=== PATIENT | female | born 1990 | race African-American/Black ===

== ENCOUNTER 2018-05-11 08:02 | Emergency (ER) | payer MEDICAID, SELFPAY ==
[2018-05-11 08:37] LABS: Bilirubin Negative (Negative); Blood, Urine Negative (Negative); Clarity CLOUDY (Clear); Glucose, Urine (Dipstick) Negative (Negative); Leukocyte Negative (Negative); Nitrite Negative (Negative); Protein, Urine (Dipstick) Negative (Neg-Trace); Specific Gravity, Urine 1.014 (1.002-1.036)
[2018-05-11 08:45] LABS: Pregnancy Test - Urine (BHCG) Negative (Negative); Pregu Control Background? CLEAR/WHITE (CLR/WHITE); Pregu Control Bar Appear? YES (CONTROL BAR); Specific Gravity 1.014 (1.002-1.036)
[2018-05-11 08:50] LABS: #Eosinphils 0.1 thou/uL (0.0-0.7); #Lymphocytes 2.6 thou/uL (1.20-3.40); #Monocytes 0.4 thou/uL (0.11-0.59); #Neutrophils 5.2 thou/uL (1.40-6.50); %Basophils 0.4 % (0.0-1.0); %Eosinophils 1.4 % (0.0-10.0); %Lymphocytes 30.9 % (21.0-51.0); %Monocytes 5.2 % (0.0-10.0); %Neutrophils 62.2 % (42.0-75.0); Hemoglobin 12.1 g/dL (12.0-16.0); Mean Corpuscular Volume 75.8 fL (78.0-98.0); Mean Platelet Volume 7.7 fL (7.4-10.4); Platelet Count 349 thou/uL (130-400); Red Blood Cell (RBC) Count 4.85 mill/uL (4.20-5.40); White Blood Cell (WBC) Count 8.4 thou/uL (4.8-10.8)
== END 2018-05-11 10:34 | disposition home or self-care (01) ==
LOC: ERS 08:02
DX: M54.42 Lumbago with sciatica, left side (principal); R30.0 Dysuria
CPT/HCPCS: 36415; 81003; 81025; 85025; 99283

== ENCOUNTER 2018-11-13 15:32 | Emergency (ER) | payer MEDICAID, SELFPAY ==
[2018-11-13] MEDS ORDERED: Ondansetron ODT 8 MG TAB ONE (16:36)
[2018-11-13 16:57] LABS: Bilirubin Small (Negative); Blood, Urine Negative (Negative); Clarity CLEAR (Clear); Glucose, Urine (Dipstick) Negative (Negative); Leukocyte Trace (Negative); Nitrite Negative (Negative); Protein, Urine (Dipstick) 30 mg/dL (Neg-Trace); Specific Gravity, Urine 1.032 (1.002-1.036); pH, Urine 6.5 (5.0-9.0)
[2018-11-13 16:59] LABS: Bacteria/HPF 1+ HPF (None Seen)
[2018-11-13 17:02] LABS: Hyaline Casts/LPF 0-3 HYALINE CAST LPF (0-3 Hyaline); Manual Microscopic Reviewed? No Path Casts Seen; Pathc Cast-AUWi Flag 3.19 (0-2.49); RBC/HPF None Seen HPF (0-3); Renal Epithelial None Seen HPF (0-3); Transitional Epithelial NONE SEEN HPF (0-3)
== END 2018-11-13 17:55 | disposition home or self-care (01) ==
LOC: ERS 15:32
DX: O23.41 Unspecified infection of urinary tract in pregnancy, first trimester (principal); O99.011 Anemia complicating pregnancy, first trimester; O99.341 Other mental disorders complicating pregnancy, first trimester; F41.9 Anxiety disorder, unspecified; Z3A.09 9 weeks gestation of pregnancy
CPT/HCPCS: 81003; 81015; 87086; 99284

== ENCOUNTER 2019-04-24 04:09 | Day surgery (SDC) | payer OTHER ==
[2019-04-24 04:47] VITALS: BP 128/66; TEMP 98.3; BMI 48.3
[2019-04-24] MEDS ORDERED: hydrALAZINE 20 MG/ML VIAL SLOW IVP PRN (04:57)
--- NOTE | 2019-04-24 05:01 | PDOC.LDHP ---
Labor and Delivery H&P Chief complaint: abdominal pain (midepigastric and N/V) HPI: Patient of Dr Flores Time: 0500 HPI: 28 yo with twins at 31 weeks 3 days with episode of N/V x 1 thios AM...also with midepigastric discomfort. No VB, no CTX, no LOF. Review of Systems: complete ROS completed and as per HPI Current gestational age (weeks): 31 (3 days) Dating criteria: last menstrual period Grav: 5 Para: 3 OB History Details: Twins this Abnormal US findings: No Current medications: pre- vitamins Previous surgical history: dilation and curettage Allergies/Adverse Reactions: Allergies Allergy/AdvReac Type Severity Reaction Status Date / Time No Known Allergies Allergy Verified 04/24/19 04:39 - Physical Exam Vital signs reviewed and normal: yes (126/66, afebrile) General: NAD Heart: RRR Lungs: CTAB Abdomen: gravid Extremeties: no edema FHT: category 1 (X 2) [place] contractions every: none - Assessment Twins with N/V X 1 this AM...no evidence of PTL at this time - Plan Plan: observation in L&D (Zofran prn; I have ordered a CMP and RUQ sono for now. )
[2019-04-24] MEDS ORDERED: Ondansetron ODT 8 MG TAB PO SCH (05:15)
[2019-04-24 06:16] LABS: ALT (SGPT) 7 U/L (8-55); AST (SGOT) 9 U/L (5-34); Albumin 3.2 g/dL (3.5-5.0); Alkaline Phosphatase 84 U/L (40-150); Anion Gap 9 mmol/L (10-20); BUN (Urea Nitrogen) 6 mg/dL (7.0-18.7); Bilirubin, Total 0.3 mg/dL (0.2-1.2); Calc. Creatinine Clearance 262 mL/min (70-130); Calcium 9.8 mg/dL (7.8-10.44); Carbon Dioxide 25 mmol/L (22-29); Chloride 107 mmol/L (98-107); Estimated GFR-MDRD Greater than 90; Glucose 98 mg/dL (70-105); Potassium 3.3 mmol/L (3.5-5.1); Protein, Total 6.2 g/dL (6.0-8.3); Sodium 138 mmol/L (136-145)
--- NOTE | 2019-04-24 06:31 | PDOC.EVN ---
Event Note - Event Note Event Note: Labs/CMP is wnl RUQ by verbal is negative
--- NOTE | 2019-04-24 10:43 | ULT ---
RIGHT UPPER QUADRANT ULTRASOUND: Date: 04/24/19 INDICATION: Nausea, vomiting, and upper abdominal pain. FINDINGS: Gallbladder is normal appearing. Visualized aspects of the pancreas are unremarkable appearing. No fo jake hepatic lesion is evident. Common bile duct measured 4.5 mm. No sonographic Rodriges's sign reporte d. Right kidney measured 11.9 cm in length. No focal renal lesion or hydronephrosis demonstrated. IMPRESSION: No acute abnormality within the right upper quadrant. POS: BH
== END 2019-04-24 06:40 | disposition home or self-care (01) ==
LOC: L&D/OP 04:09
PROVIDERS: ATTEND Student in an Organized Health Care Education/Training Program
DX: O21.2 Late vomiting of pregnancy (principal); O99.89 Other specified diseases and conditions complicating pregnancy, childbirth and the puerperium; R10.13 Epigastric pain; O30.003 Twin pregnancy, unspecified number of placenta and unspecified number of amniotic sacs, third trimester; Z3A.31 31 weeks gestation of pregnancy; Z79.899 Other long term (current) drug therapy
CPT/HCPCS: 36415; 76705; 80053; 99283

== ENCOUNTER 2019-04-29 10:58 | Day surgery (SDC) | payer OTHER ==
[2019-04-29 11:55] VITALS: BMI 48.3
[2019-04-29] MEDS ORDERED: hydrALAZINE 20 MG/ML VIAL SLOW IVP PRN (12:23)
[2019-04-29 13:51] LABS: ALT (SGPT) Less than 7 U/L (8-55); AST (SGOT) 8 U/L (5-34); Alkaline Phosphatase 90 U/L (40-150); Anion Gap 10 mmol/L (10-20); BUN (Urea Nitrogen) 4 mg/dL (7.0-18.7); Bilirubin, Total 0.4 mg/dL (0.2-1.2); Calc. Creatinine Clearance 290 mL/min (70-130); Calcium 8.9 mg/dL (7.8-10.44); Carbon Dioxide 24 mmol/L (22-29); Chloride 107 mmol/L (98-107); Estimated GFR-MDRD Greater than 90; Globulin 2.9 g/dL (2.4-3.5); Glucose 106 mg/dL (70-105); Potassium 3.1 mmol/L (3.5-5.1); Protein, Total 5.9 g/dL (6.0-8.3); Sodium 138 mmol/L (136-145)
[2019-04-29 14:17] LABS: #Basophils 0.1 thou/uL (0.0-0.2); #Eosinphils 0.3 thou/uL (0.0-0.7); #Lymphocytes 1.9 thou/uL (1.20-3.40); #Monocytes 0.6 thou/uL (0.11-0.59); #Neutrophils 8.8 thou/uL (1.40-6.50); %Basophils 0.6 % (0.0-1.0); %Eosinophils 2.2 % (0.0-10.0); %Lymphocytes 16.6 % (21.0-51.0); %Monocytes 5.4 % (0.0-10.0); %Neutrophils 75.3 % (42.0-75.0); Anisocytosis SLIGHT = 6-15 cells (100X) (0-5/hpf); Band 7 % (5-11); Eosinophils 2 % (0-10); Hemoglobin 8.5 g/dL (12.0-16.0); Lymphocytes 4 % (21-51); MDiff Complete? YES; Mean Corpuscular Hemoglobin 23.1 pg (27.0-31.0); Mean Platelet Volume 8.7 fL (7.4-10.4); Monocytes 4 % (0-10); Neutrophil 83 % (42-75); Platelet Count 275 thou/uL (130-400); Platelet Morphology Comment Appears Adequate; RBC Distribution Width 14.9 % (11.5-14.5); Red Blood Cell (RBC) Count 3.68 mill/uL (4.20-5.40); White Blood Cell (WBC) Count 11.7 thou/uL (4.8-10.8)
[2019-04-29 14:48] LABS: Creatinine, Urine 114.35 mg/dL (47-110)
--- NOTE | 2019-04-29 15:43 | PDOC.LDHP ---
Labor and Delivery H&P Chief complaint: other (PIH workup) HPI: 28 y/o at 32w1d, patient of Dr. Flores, sent over for elevated BPs in clinic (140s systolic). Has felt tired for the last few days with a headache but headache has improved. Denies VB, LOF, ctx, or decreased FM. OB History Details: 3 prior SVDs 1 SAB with D&C Current complications: di/di twins Past Medical History: None Previous surgical history: dilation and curettage Allergies/Adverse Reactions: Allergies Allergy/AdvReac Type Severity Reaction Status Date / Time No Known Allergies Allergy Verified 04/29/19 11:43 Social history: none - Physical Exam Vital signs reviewed and normal: yes General: NAD, resting Lungs: nonlabored breathing Abdomen: gravid Extremeties: no edema FHT: category 1 (150s/145, mod variability, + accels, no decels) [place] contractions every: none - Assessment 28 y/o at 32w1d with no e/o preeclampsia. status reassuring x 2. - Plan -: D/c home with precautions. Advised to keep next appointment for Thursday.
== END 2019-04-29 17:00 | disposition home health service (06) ==
LOC: L&D/OP 10:58
PROVIDERS: ATTEND Student in an Organized Health Care Education/Training Program
DX: O99.89 Other specified diseases and conditions complicating pregnancy, childbirth and the puerperium (principal); R03.0 Elevated blood-pressure reading, without diagnosis of hypertension; O30.043 Twin pregnancy, dichorionic/diamniotic, third trimester; Z87.59 Personal history of other complications of pregnancy, childbirth and the puerperium; Z3A.32 32 weeks gestation of pregnancy
CPT/HCPCS: 36415; 80053; 82570; 84156; 85025; 99283

== ENCOUNTER 2019-05-02 10:44 | Inpatient (IN) | payer OTHER ==
[2019-05-02 11:28] VITALS: BP 116/67; TEMP 98; BMI 48.3
[2019-05-02] MEDS ORDERED: Butorphanol Tartrate 1 MG/ML VIAL SLOW IVP PRN (11:54)
[2019-05-02] MEDS ORDERED: Promethazine HCl 25 MG/ML VIAL IM PRN (11:54)
[2019-05-02] MEDS ORDERED: Acetaminophen 500 MG TAB PO PRN (11:54)
[2019-05-02] MEDS ORDERED: Ondansetron PF 4 MG/2 ML Vial IVP PRN (11:54)
[2019-05-02] MEDS ORDERED: Zolpidem Tartrate 5 MG TAB PO PRN (11:54)
[2019-05-02] MEDS ORDERED: hydrALAZINE 20 MG/ML VIAL SLOW IVP PRN (11:54)
[2019-05-02] MEDS ORDERED: Docusate 100 MG CAP PO PRN (11:54)
[2019-05-02 12:19] LABS: Hemoglobin 8.8 g/dL (12.0-16.0); Mean Corpuscular HGB CONC 31.7 g/dL (32.0-36.0); Mean Corpuscular Hemoglobin 22.4 pg (27.0-31.0); Mean Corpuscular Volume 70.5 fL (78.0-98.0); Mean Platelet Volume 8.4 fL (7.4-10.4); Platelet Count 283 thou/uL (130-400); RBC Distribution Width 15.2 % (11.5-14.5); Red Blood Cell (RBC) Count 3.91 mill/uL (4.20-5.40)
[2019-05-02 12:44] LABS: ALT (SGPT) Less than 7 U/L (8-55); AST (SGOT) 8 U/L (5-34); Albumin 3.2 g/dL (3.5-5.0); Alkaline Phosphatase 94 U/L (40-150); Anion Gap 9 mmol/L (10-20); BUN (Urea Nitrogen) 5 mg/dL (7.0-18.7); Bilirubin, Total 0.4 mg/dL (0.2-1.2); Calc. Creatinine Clearance 300 mL/min (70-130); Calcium 9.1 mg/dL (7.8-10.44); Carbon Dioxide 24 mmol/L (22-29); Chloride 108 mmol/L (98-107); Estimated GFR-MDRD Greater than 90; Glucose 97 mg/dL (70-105); Potassium 3.1 mmol/L (3.5-5.1); Protein, Total 6.2 g/dL (6.0-8.3); Sodium 138 mmol/L (136-145)
[2019-05-02] MEDS: Betamet Acet/Betamet Na Ph 30 MG/5 ML VIAL IM SCH (12:54)
[2019-05-02] MEDS ORDERED: Iron Sucrose Complex 500 MG in Sodium Chloride 0.9% 250 ML 250 ML IVPB SCH (13:15)
[2019-05-02] MEDS ORDERED: Acetaminophen 500 MG TAB PO SCH (13:15)
--- NOTE | 2019-05-02 14:13 | PDOC.LDHP ---
Labor and Delivery H&P Chief complaint: other (CANTU, dizziness, elevated blood pressure) HPI: 28yo at 32w4d by LMP with patrick TIUP presented to clinic for BP check which was elevated x 2 140s/80s, pt symptomatic with severe CANTU, nausea and dizziness. Pt was seen in triage last week for r/o PIH. She was found to be anemic at 8.6. Pt has been on iron supplements. Denies any vision change, RUQ pain. Denies ctx, VB LOF. Current gestational age (weeks): 32 Due date: 06/23/19 Dating criteria: last menstrual period Grav: 5 Para: 3 OB History Details: h/o PTD at 34w on 17P weekly this Current complications: gestational diabetes Abnormal US findings: No Past Medical History: anemia Current medications: pre- vitamins, iron Previous surgical history: dilation and curettage Allergies/Adverse Reactions: Allergies Allergy/AdvReac Type Severity Reaction Status Date / Time No Known Allergies Allergy Verified 05/02/19 11:24 Social history: none - Physical Exam Vital signs reviewed and normal: yes General: NAD Heart: RRR Lungs: CTAB Abdomen: gravid Extremeties: no edema FHT: category 1 [place] contractions every: none - OB Labs Blood type: O RH: positive Antibody Screen: negative HIV: negative RPR: negative HEPSAg: negative 1 hour GCT: positive 3 hour GTT: positive for GDM GBS: unknown Urine drug screen: negative Rubella: immune - Assessment R/o PIH Symptomatic anemia Gestational diabetes Twins 32 weeks - Plan -: PIH labs, 24hr urine, 2+ pro on UA in office, serial BP IV iron infusion GDM control- start meds NST q shift BMZ x 2
[2019-05-02] MEDS ORDERED: Dextrose 5% in Water 1,000 ML IV PRN (16:41)
[2019-05-02] MEDS ORDERED: Insulin Regular 300 UNITS/3 ML VIAL SC PRN (16:41)
[2019-05-02] MEDS ORDERED: Dextrose 50% Abboject 50 ML SYRINGE SLOW IVP PRN (16:41)
[2019-05-02] MEDS: Potassium Chloride 20 MEQ TAB PO SCH (17:04)
[2019-05-02] MEDS: metFORMIN 500 MG TAB PO SCH (17:04)
[2019-05-02] MEDS ORDERED: GLYBURIDE PO SCH (21:00)
[2019-05-03] MEDS ORDERED: Calcium Carbonate 500 MG ChewTAB PO PRN (04:03)
[2019-05-03] MEDS ORDERED: Prenatal Vitamin 1 TAB PO SCH (09:00)
[2019-05-03] MEDS: metFORMIN 500 MG TAB PO SCH (09:38)
[2019-05-03] MEDS: Potassium Chloride 20 MEQ TAB PO SCH (10:22)
--- NOTE | 2019-05-03 11:35 | PDOC.LDPN ---
Labor & Delivery Progress Note - Subjective Subjective: no concerns (good FM, no LOF VB or ctx. No PIH sx. Feeling much better since iron infusion) - Objective Vital signs reviewed and normal: yes General: NAD Uterine fundus: non tender FHT: category 1 (x2) [place] contractions every: none - Assessment (1) Iron deficiency anemia Code(s): D50.9 - IRON DEFICIENCY ANEMIA, UNSPECIFIED Current Visit: Yes Status: Acute Qualifiers: Iron deficiency anemia type: inadequate dietary iron intake Qualified Code( s): D50.8 - Other iron deficiency anemias (2) Twin Code(s): O30.009 - TWIN , UNSP NUM PLCNTA & AMNIO SACS, UNSP TRIMESTER Current Visit: Yes Status: Acute Qualifiers: Multiple gestation type: dichorionic and diamniotic Trimester: third trimester Qualified Code(s): O30.043 - Twin , dichorionic/diamniotic , third trimester (3) Gestational diabetes Code(s): O24.419 - GESTATIONAL DIABETES MELLITUS IN , UNSP CONTROL Current Visit: Yes Status: Acute Qualifiers: Gestational diabetes mellitus control: oral hypoglycemic-controlled Trimester: third trimester Qualified Code(s): O24.415 - Gestational diabetes mellitus in , controlled by oral hypoglycemic drugs (4) Elevated blood pressure complicating in third trimester, antepartum Code(s): O16.3 - UNSPECIFIED MATERNAL HYPERTENSION, THIRD TRIMESTER Current Visit: Yes Status: Acute -: 28yo at 32w5d by LMP with patrick TIUP, elevated blood pressure, symptomatic anemia 1. s/p IV iron yesterday, cont po iron supplement on DC, symptoms have resolved. 2. r/o PIH- BP nl, sx resolved, labs normal, 24hr urine pending 3. Prematurity- s/p BMZ, 2nd dose at 1300 4. FHT Cat 1 x 2 5. GDM- started on metformin 500 bid and glyburide 2.5 bid. BS are nl today. 6. Hx of PTD- 17OHP q thursday 7. DC home after second dose steroids.
[2019-05-03] MEDS: Betamet Acet/Betamet Na Ph 30 MG/5 ML VIAL IM SCH (13:25)
[2019-05-03 14:13] LABS: Urine Total Volume 3000 mL (600-1600)
[2019-05-03 14:33] LABS: Protein, Urine Less than 10 mg/dL (1-14)
== END 2019-05-03 13:50 | disposition home health service (06) | DRG 833 ==
LOC: L&D/OP 10:44 → L&D 10:48
PROVIDERS: ADMIT Student in an Organized Health Care Education/Training Program; ATTEND Student in an Organized Health Care Education/Training Program
DX: O24.415 Gestational diabetes mellitus in pregnancy, controlled by oral hypoglycemic drugs (principal); O99.013 Anemia complicating pregnancy, third trimester; D50.9 Iron deficiency anemia, unspecified; O13.3 Gestational [pregnancy-induced] hypertension without significant proteinuria, third trimester; O30.043 Twin pregnancy, dichorionic/diamniotic, third trimester; Z3A.32 32 weeks gestation of pregnancy
CPT/HCPCS: 36415; 36416; 59025; 80053; 84156; 85027; J0702; J1756; J1815; J7050

== ENCOUNTER 2019-06-02 06:00 | Inpatient (IN) | payer OTHER ==
[2019-06-02] MEDS ORDERED: Acetaminophen 500 MG TAB PO PRN (06:58)
[2019-06-02] MEDS ORDERED: Misoprostol 200 MCG TAB PR PRN (06:58)
[2019-06-02] MEDS ORDERED: Lidocaine 1% (PF) 30 ML VIAL SC PRN (06:58)
[2019-06-02] MEDS ORDERED: Carboprost 250 MCG/ML AMP IM PRN (06:58)
[2019-06-02] MEDS ORDERED: Diphenoxylate HCl/Atropine Tablet PO PRN (06:58)
[2019-06-02] MEDS ORDERED: NS / Oxytocin 40 units/1000ml 1,000 ML IV PRN (06:58)
[2019-06-02] MEDS ORDERED: Ondansetron PF 4 MG/2 ML Vial IVP PRN ×3 (06:58→16:54)
[2019-06-02] MEDS ORDERED: Promethazine HCl 25 MG/ML VIAL IM PRN ×3 (06:58→16:54)
[2019-06-02] MEDS ORDERED: HYDROcodone/Acetaminophen 5/325 mg Tablet PO PRN ×2 (06:58→16:54)
[2019-06-02] MEDS ORDERED: Ibuprofen 800 MG TAB PO PRN (06:58)
[2019-06-02] MEDS ORDERED: Butorphanol Tartrate 1 MG/ML VIAL SLOW IVP PRN (06:58)
[2019-06-02] MEDS ORDERED: hydrALAZINE 20 MG/ML VIAL SLOW IVP PRN ×2 (06:58→16:54)
[2019-06-02] MEDS ORDERED: Methylergonovine 0.2 MG/ML VIAL IM PRN (06:58)
[2019-06-02] MEDS ORDERED: NS w/ Oxytocin 10 units 500 ML IV SCH (07:00)
[2019-06-02] MEDS ORDERED: Penicillin G Potassium 5 MILL.UNITS in Sodium Chloride 0.9% 100 ML IVPB SCH (07:00)
[2019-06-02 07:17] VITALS: BMI 48.3
[2019-06-02] MEDS: Lactated Ringer's 1,000 ML IV SCH ×4 (07:20→14:37)
[2019-06-02 07:31] LABS: Hemoglobin 10.3 g/dL (12.0-16.0); Mean Corpuscular Hemoglobin 22.9 pg (27.0-31.0); Mean Corpuscular Volume 71.6 fL (78.0-98.0); Mean Platelet Volume 9.6 fL (7.4-10.4); Platelet Count 294 thou/uL (130-400); RBC Distribution Width 18.8 % (11.5-14.5); White Blood Cell (WBC) Count 11.2 thou/uL (4.8-10.8)
[2019-06-02 08:16] LABS: Syphilis Antibody Nonreactive (Nonreactive); Syphilis Antibody Index 0.03 S/CO (<1.00 Non-Reactive)
[2019-06-02 08:17] LABS: HBSAg Index 0.11 S/CO (0-0.99); Hep B Surf Ag Non-Reactive S/CO (NonReactive)
--- NOTE | 2019-06-02 08:39 | PDOC.LDHP ---
Labor and Delivery H&P Chief complaint: scheduled induction HPI: 28yo at 37w 0d by LMP with patrick TIUP here for IOL 2/2 A2GDM. No complaints, some ctx. Good FM. Current gestational age (weeks): 37 Due date: 06/23/19 Dating criteria: last menstrual period Grav: 5 Para: 3 Current complications: gestational diabetes (controlled on metformin) , di/di twins, other (anemia s/p IV iron) Abnormal US findings: No (concordant growth, ceph/ceph) Past Medical History: asthma Current medications: pre-adria vitamins, iron, other (metformin) Previous surgical history: none Allergies/Adverse Reactions: Allergies Allergy/AdvReac Type Severity Reaction Status Date / Time No Known Allergies Allergy Verified 06/02/19 07:19 Social history: none - Physical Exam Vital signs reviewed and normal: yes General: NAD Heart: RRR Lungs: CTAB Abdomen: gravid Extremeties: no edema FHT: category 1 (x2) [place] contractions every: 4-8min - Vaginal Exam cm dilated: 3 Effacement: 50% Station: -2 (AROM clear) - OB Labs Blood type: O RH: positive Antibody Screen: negative HIV: negative RPR: negative HEPSAg: negative 1 hour GCT: positive 3 hour GTT: positive GBS: positive Urine drug screen: positive Rubella: immune - Assessment L&D Assessment: medically indicated induction - Plan Plan: admit to L&D, labor augmentation if indicated, GBS antibiotic prophylaxis , informed consent obtained, anesthesia consult for pain management -: Discussed risks for of twins including need to deliver in OR with double set up, risk of stat CS for second twin, risk of breech extraction of second twin. Pt understands and wishes to proceed with induction. Declines PCS>
[2019-06-02] MEDS ORDERED: Lidocaine 2% MPF 10 ML AMP (For Epidural Use) ONE (09:00)
[2019-06-02] MEDS ORDERED: ePHEDrine/0.9% NaCl/PF SYRINGE 50 mg/10 ml ONE (09:00)
[2019-06-02] MEDS ORDERED: Fentanyl 4 mcg/Bup 0.1% Cadd 100 ML ONE (10:01)
[2019-06-02] MEDS ORDERED: Lidocaine 1.5%/Epinephrine 1:200,000 5 ML AMPUL IJ ONE (10:05)
[2019-06-02] MEDS ORDERED: ePHEDrine/0.9% NaCl/PF SYRINGE 50 mg/10 ml SLOW IVP PRN (11:49)
[2019-06-02] MEDS ORDERED: diphenhydrAMINE 50 MG/ML VIAL IVP PRN (11:49)
[2019-06-02] MEDS ORDERED: Lactated Ringer's 500 ML IV PRN (11:49)
[2019-06-02] MEDS ORDERED: Acetaminophen 325 MG TAB PO PRN (11:49)
[2019-06-02] MEDS ORDERED: Naloxone HCl 0.4 mg/ml Vial IVP PRN ×2 (11:49)
[2019-06-02] MEDS ORDERED: Fentanyl 4 mcg/Bupivacaine 0.1% Cassette 100 ML EPIDURAL SCH (12:00)
[2019-06-02] MEDS ORDERED: Communication Order-Pharmacy FS SCH (12:00)
[2019-06-02] MEDS: Penicillin G 2.5 MILL.units 2.5 MILL.UNITS in Premix Bag 1 BAG IVPB SCH ×2 (12:12→19:57)
--- NOTE | 2019-06-02 12:54 | PDOC.LDPN ---
Labor & Delivery Progress Note - Subjective Subjective: painful contractions - Objective Vital signs reviewed and normal: yes General: breathing through contractions Uterine fundus: non tender Dilation: 4 Effacement: 75% Station: -2 FHT: category 2 (late decels after epidural baby A, now cat 1 after resuscitation and ephedrine) [place] contractions every: 3min Plan: labor augmentation
[2019-06-02 14:04] LABS: Amphetamine Not Detected (NotDetected); Barbiturates Screen Not Detected (NotDetected); Benzodiazepine Screen Not Detected (NotDetected); Cocaine Metabolite Screen Not Detected (NotDetected); Medtox Control Line Valid? VALID (VALID); Medtox Reader # READER 1; Methadone Not Detected (NotDetected); Methamphetamine Not Detected (NotDetected); Opiate Screen Not Detected (NotDetected); Oxycodone Screen Not Detected (NotDetected); Phencyclidine (PCP) Not Detected (NotDetected); THC/Cannabinoid Screen Not Detected (NotDetected); Tricyclic Screen Not Detected (NotDetected)
--- NOTE | 2019-06-02 15:56 | PDOC.OPDEL ---
OB Operative/Delivery Note Delivery Dr/Surgeon: Sandra Assist: Rylan Pre-Delivery Diagnosis: medically indicated induction (twins, A2GDM, 37w) Procedure/Post Delivery Dx: spontaneous vaginal delivery (x2) Weeks gestation: 37 Anesthesia: epidural - Findings A Sex: female - 1 min: 8 - 5 min: 9 B Sex: female - 1 min: 8 - 5 min: 9 - Additional Findings/Plan Placenta delivered: spontaneous Repaired Obstetrical Laceration: none Estimated blood loss: 200cc Post delivery plan: routine recovery
[2019-06-02] MEDS ORDERED: Lanolin Ointment 7 GM TUBE TOP PRN (16:54)
[2019-06-02] MEDS ORDERED: NS / Oxytocin 40 units/1000ml 1,000 ML IV SCH (16:54)
[2019-06-02] MEDS ORDERED: Benzocaine-Menthol 82.5 ML CAN TOP PRN (16:54)
[2019-06-02] MEDS ORDERED: Zolpidem Tartrate 5 MG TAB PO PRN (16:54)
[2019-06-02] MEDS ORDERED: diphenhydrAMINE 25 MG CAP PO PRN (16:54)
[2019-06-02] MEDS ORDERED: Preparation H Ointment 28 GM TUBE PR PRN (16:54)
[2019-06-02] MEDS ORDERED: Bisacodyl 10 MG SUPP PR PRN (16:54)
[2019-06-02] MEDS ORDERED: Milk Of Magnesia 30 ML UDCUP PO PRN (16:54)
[2019-06-02] MEDS: Ibuprofen 800 MG TAB PO SCH (19:22)
[2019-06-02] MEDS: Ferrous Sulfate 325 MG TAB PO SCH (19:57)
[2019-06-02] MEDS: HYDROcodone/Acetaminophen 5/325 mg Tablet PO PRN (20:24)
[2019-06-02] MEDS: Docusate Calcium (SURFAK) 240 MG CAP PO SCH (23:53)
[2019-06-03 04:41] LABS: Mean Corpuscular HGB CONC 32.8 g/dL (32.0-36.0); Mean Corpuscular Hemoglobin 23.7 pg (27.0-31.0); Mean Corpuscular Volume 72.3 fL (78.0-98.0); Mean Platelet Volume 9.6 fL (7.4-10.4); Platelet Count 275 thou/uL (130-400); RBC Distribution Width 18.4 % (11.5-14.5); Red Blood Cell (RBC) Count 4.21 mill/uL (4.20-5.40); White Blood Cell (WBC) Count 11.4 thou/uL (4.8-10.8)
[2019-06-03] MEDS: Ibuprofen 800 MG TAB PO SCH ×3 (06:15→22:02)
[2019-06-03] MEDS: Ferrous Sulfate 325 MG TAB PO SCH ×2 (09:20→19:19)
--- NOTE | 2019-06-03 09:25 | PDOC.PP ---
Post Progress Note Post Day #: 1 s/p twin Subjective: Doing well, not breast-feeding...states would like DC home tomorrow if able. One baby under bili lights PO intake tolerated: yes Flatus: yes Ambulation: yes Vital Signs (12 hours) Temp Pulse Resp BP Pulse Ox 06/03/19 08:13 98.7 F 70 20 111/58 L 98 06/03/19 04:24 98.3 F 65 16 102/54 L 06/03/19 00:12 98.4 F 65 18 132/74 99 Weight Weight 273 lb All other prior vitals reviewed - Physical Examination General: NAD Neurological: no gross focal deficits Psychiatric: A&Ox3, normal affect Result Diagrams: 06/03/19 04:16 Additional Labs: Post Labs Blood Type O POSITIVE 06/02/19 07:18 Hep Bs Antigen Non-Reactive S/CO (NonReactive) 06/02/19 07:18 (1) Vaginal delivery Code(s): O80 - ENCOUNTER FOR FULL-TERM UNCOMPLICATED DELIVERY Status: Acute (2) Twin Code(s): O30.009 - TWIN , UNSP NUM PLCNTA & AMNIO SACS, UNSP TRIMESTER Status: Acute Qualifiers: Multiple gestation type: dichorionic and diamniotic Trimester: third trimester Qualified Code(s): O30.043 - Twin , dichorionic/diamniotic , third trimester - Assessment/Plan A/P: PPD 1 s//p twins...HX GDM...doing well. HX Fe deficiency anemai Plan: 1. Follow today although multip, one twin under bili lights 2. Twin education 3. HCT ok 4. Routine for now
[2019-06-03] MEDS: Prenatal Vitamin 1 TAB PO SCH (09:31)
[2019-06-03] MEDS: Docusate Calcium (SURFAK) 240 MG CAP PO SCH ×2 (09:31→22:02)
[2019-06-03] MEDS: HYDROcodone/Acetaminophen 5/325 mg Tablet PO PRN (09:33)
[2019-06-03] MEDS ORDERED: Adacel (T-DAP) 0.5 ML SYRINGE IM ONE (16:54)
[2019-06-04] MEDS: Ibuprofen 800 MG TAB PO SCH (06:10)
--- NOTE | 2019-06-04 06:24 | PDOC.PP ---
Post Progress Note Post Day #: 2 Subjective: Ms. Orellana is feeling well and says she is ready to go home. Lochia decreasing. Ambulating well. Reports lower abdominal cramping. This pain is not worsening. PO intake tolerated: yes Flatus: yes Ambulation: yes Vital Signs (12 hours) Temp Pulse Resp BP Pulse Ox 06/03/19 20:03 98.6 F 76 16 134/60 99 Weight Weight 123.831 kg - Physical Examination General: NAD Cardiovascular: no m/r/g, RRR Respiratory: clear to auscultation bilaterally Abdominal: + bowel sounds, no distention, appropriately TTP Fundus firm & at: below umbilicus Neurological: no gross focal deficits Psychiatric: normal affect Result Diagrams: 06/03/19 04:16 Additional Labs: Post Labs Blood Type O POSITIVE 06/02/19 07:18 Hep Bs Antigen Non-Reactive S/CO (NonReactive) 06/02/19 07:18 (1) Vaginal delivery Code(s): O80 - ENCOUNTER FOR FULL-TERM UNCOMPLICATED DELIVERY Status: Acute (2) Gestational diabetes Code(s): O24.419 - GESTATIONAL DIABETES MELLITUS IN , UNSP CONTROL Status: Acute Qualifiers: Gestational diabetes mellitus control: oral hypoglycemic-controlled Trimester: third trimester Qualified Code(s): O24.415 - Gestational diabetes mellitus in , controlled by oral hypoglycemic drugs (3) Iron deficiency anemia Code(s): D50.9 - IRON DEFICIENCY ANEMIA, UNSPECIFIED Status: Acute Qualifiers: Iron deficiency anemia type: inadequate dietary iron intake Qualified Code( s): D50.8 - Other iron deficiency anemias (4) Twin Code(s): O30.009 - TWIN , UNSP NUM PLCNTA & AMNIO SACS, UNSP TRIMESTER Status: Acute Qualifiers: Multiple gestation type: dichorionic and diamniotic Trimester: third trimester Qualified Code(s): O30.043 - Twin , dichorionic/diamniotic , third trimester - Assessment/Plan - recovering well with routine care GDM - BG checks wnl here, will discontinue metformin and recommend outpatient follow up Anemia - continue iron supplements Dispo: Plan for discharge this morning. Patient plans to call Dr. Flores's office next week to get f/u appt scheduled.
[2019-06-04 07:38] VITALS: TEMP 98.5
[2019-06-04] MEDS: Ferrous Sulfate 325 MG TAB PO SCH (07:56)
[2019-06-04] MEDS: Docusate Calcium (SURFAK) 240 MG CAP PO SCH (08:22)
[2019-06-04] MEDS: Prenatal Vitamin 1 TAB PO SCH (08:22)
[2019-06-04 12:30] VITALS: BP 135/85
== END 2019-06-04 13:36 | disposition home or self-care (01) | DRG 807 ==
LOC: L&D 06:15 → 3SE 22:41
PROVIDERS: ADMIT Student in an Organized Health Care Education/Training Program; ATTEND Student in an Organized Health Care Education/Training Program
PROC: 10E0XZZ Delivery of Products of Conception, External Approach (ICD-10-PCS; principal; 2019-06-02)
PROC: 10907ZC Drainage of Amniotic Fluid, Therapeutic from Products of Conception, Via Natural or Artificial Opening (ICD-10-PCS; 2019-06-02)
PROC: 3E033VJ Introduction of Other Hormone into Peripheral Vein, Percutaneous Approach (ICD-10-PCS; 2019-06-02)
DX: O24.425 Gestational diabetes mellitus in childbirth, controlled by oral hypoglycemic drugs (principal); Z37.2 Twins, both liveborn; O99.02 Anemia complicating childbirth; O99.824 Streptococcus B carrier state complicating childbirth; O76 Abnormality in fetal heart rate and rhythm complicating labor and delivery; O30.043 Twin pregnancy, dichorionic/diamniotic, third trimester; D50.8 Other iron deficiency anemias; Z3A.37 37 weeks gestation of pregnancy
CPT/HCPCS: 36415; 36416; 51702; 80306; 85027; 86780; 86850; 86900; 86901; 87340; 88307; J2001; J2210; J2405; J2540; J2590; J3490

== ENCOUNTER 2022-06-11 09:40 | Emergency (ER) | payer OTHER ==
[2022-06-11 12:06] LABS: Bacteria/HPF 1+ HPF (None Seen); Bilirubin Negative (Negative); Blood, Urine Negative (Negative); Glucose, Urine (Dipstick) Normal (Negative); Ketone, Urine Negative (Negative); Leukocyte 75 Leu/uL (Negative); Nitrite Negative (Negative); Protein, Urine (Dipstick) 10 mg/dL (Neg-Trace); RBC/HPF 0-3 HPF (0-3); Specific Gravity, Urine 1.026 (1.002-1.036)
[2022-06-11 12:07] LABS: Clarity Hazy (Clear); Pregnancy Test - Urine (BHCG) Negative (Negative)
[2022-06-11 12:08] LABS: Pregu Control Background? CLEAR/WHITE (CLR/WHITE); Pregu Control Bar Appear? YES (CONTROL BAR); Specific Gravity 1.026 (1.002-1.036)
[2022-06-11] MEDS ORDERED: Ketorolac Tromethamine 30 MG/ML VIAL IM SCH (12:15)
[2022-06-11] MEDS ORDERED: Ketorolac Tromethamine 30 MG/ML VIAL ONE (12:22)
== END 2022-06-11 12:42 | disposition home or self-care (01) ==
LOC: ERS 09:40
DX: M54.50 Low back pain, unspecified (principal)
CPT/HCPCS: 81003; 81015; 81025; 96372; 99283; J1885

== ENCOUNTER 2023-08-18 09:11 | Emergency (ER) | payer OTHER ==
[2023-08-18] MEDS ORDERED: Ondansetron ODT 4 MG TAB ONE (09:37)
[2023-08-18 09:53] LABS: #Basophils 0.1 thou/uL (0.0-0.2); #Monocytes 0.5 thou/uL (0.11-0.59); %Basophils 0.6 % (0.0-1.0); %Eosinophils 0.4 % (0.0-10.0); %Lymphocytes 18.1 % (21.0-51.0); %Monocytes 4.8 % (0.0-10.0); %Neutrophils 75.7 % (42.0-75.0); Hematocrit 37.9 % (36.0-47.0); Hemoglobin 12.1 g/dL (12.0-16.0); Mean Corpuscular HGB CONC 31.9 g/dL (32.0-36.0); Mean Corpuscular Hemoglobin 25.1 pg (27.0-31.0); Mean Corpuscular Volume 78.6 fl (78.0-98.0); Platelet Count 350 10x3/uL (130-400); RBC Distribution Width 14.5 % (11.5-14.5); Red Blood Cell (RBC) Count 4.82 mill/uL (4.20-5.40); White Blood Cell (WBC) Count 10.5 10x3/uL (4.8-10.8)
[2023-08-18 10:03] LABS: BHCG - Serum Negative (NEGATIVE); Pregs Control Background? CLEAR/WHITE (CLR/WHITE); Pregs Control Bar Appear? YES (CONTROL BAR)
[2023-08-18 10:17] LABS: Bilirubin Negative (Negative); Blood, Urine Negative (Negative); CAUTI Indications for Culture Dysuria,urgency,freq; Clarity Turbid (Clear); Glucose, Urine (Dipstick) Normal (Negative); Ketone, Urine Negative (Negative); Leukocyte 500 Leu/uL (Negative); Nitrite Negative (Negative); Protein, Urine (Dipstick) Negative (Neg-Trace); RBC/HPF 0-3 HPF (0-3); Specific Gravity, Urine 1.007 (1.002-1.036); Urobilinogen Normal mg/dL (Less than 2)
[2023-08-18 10:19] LABS: ALT (SGPT) 13 U/L (8-55); AST (SGOT) 21 U/L (5-34); Albumin 4.3 g/dL (3.5-5.0); Alkaline Phosphatase 31 U/L (40-110); Anion Gap 13 mmol/L (10-20); BUN (Urea Nitrogen) 15 mg/dL (7.0-18.7); Bilirubin, Total 0.7 mg/dL (0.2-1.2); Calc. Creatinine Clearance 0 mL/min (70-130); Calcium 9.2 mg/dL (7.8-10.44); Carbon Dioxide 22 mmol/L (22-29); Chloride 108 mmol/L (98-107); Estimated GFR 81; Globulin 3.1 g/dL (2.4-3.5); Glucose 85 mg/dL (70-105); Potassium 3.2 mmol/L (3.5-5.1); Protein, Total 7.4 g/dL (6.0-8.3); Sodium 140 mmol/L (136-145)
[2023-08-18 10:23] LABS: Bacteria/HPF 1+ HPF (None Seen)
[2023-08-18 10:24] LABS: Urine Culture Reflex Yes Yes
== END 2023-08-18 10:49 | disposition home or self-care (01) ==
LOC: ERS 09:11
DX: N10 Acute pyelonephritis (principal); R53.1 Weakness
CPT/HCPCS: 36415; 80053; 81001; 84703; 85025; 87077; 87086; 99284; Q0162